=== PATIENT | male | born 1980 | race American Indian/Alaskan Native ===

== ENCOUNTER 2017-10-28 10:54 | Emergency (ER) | payer OTHER ==
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
[2017-10-28] MEDS ORDERED: MOTRIN PO ONE (14:08)
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
[2017-10-28 16:47] VITALS: BP 156/84
== END 2017-10-28 16:49 | disposition home or self-care (01) ==
LOC: ED 10:54
DX: T23.122A Burn of first degree of single left finger (nail) except thumb, initial encounter (principal); S76.911A Strain of unspecified muscles, fascia and tendons at thigh level, right thigh, initial encounter; V49.49XA Driver injured in collision with other motor vehicles in traffic accident, initial encounter; Y93.89 Activity, other specified; Y92.89 Other specified places as the place of occurrence of the external cause; Y99.8 Other external cause status
CPT/HCPCS: 99282